=== PATIENT | male | born 1980 | race Two or more races ===

== ENCOUNTER 2017-04-08 14:20 | Emergency (ER) | payer OTHER ==
[~2017-04-08] VITALS: Ht 170.2 cm; Wt 108.9 kg
[~2017-04-08 14:20] MED LIST: AMBIEN CR12.5 MG PO; AMOX1TAB12 PO; BACLOFEN20 MG PO; CLONAZEPAM1 MG PO; DOCUSATE SODIU100 MG PO; GABAPENTIN800 MG PO; JARDIANCE10 MG PO; LANTUS SOLOSTAR3 ML; LISINOPRIL10 MG PO; LISINOPRIL5 MG PO; METFORMIN HCL1000 M1 PO; PERCOCET 10-3251 TAB PO; PERCOCET 5-3251 EACH PO; ZANAF PO
== END 2017-04-09 12:00 | disposition home or self-care (01) ==
LOC: ER 14:20
DX: M54.5 Low back pain (principal); Z98.1 Arthrodesis status